=== PATIENT | female | born 1970 | race Caucasian/White ===

== ENCOUNTER 2023-05-30 14:15 | Emergency (ER) | payer BC ==
[2023-05-30] MEDS: Ondansetron 4 MG/2 ML SDV IVPUSH ONE (15:11)
[2023-05-30] MEDS: Ketorolac 15 MG/ML SDV IVPUSH ONE (15:11)
[2023-05-30] MEDS: methylPREDNISolone Sodium Succinate 125 MG/2 ML SDV IVPUSH ONE (15:11)
[2023-05-30] MEDS: HYDROmorphone 0.5 MG/0.5 ML Syringe IVPUSH ONE (15:33)
[2023-05-30] MEDS: Take Home: Orphenadrine 100 MG Tab.ER, 4 Tab Pack PO ONE (15:46)
[2023-05-30] MEDS: Take Home: oxyCODONE HCl 5 MG Tab, 5 Tab Pack PO ONE (15:46)
[2023-05-30] MEDS: Take Home: predniSONE 20 MG, 4 Tab Pack PO ONE (15:47)
[2023-05-30] MEDS: Sodium Chloride 0.9% 10 ML Syringe FLUSH PRN (15:51)
[2023-05-30] MEDS: Orphenadrine 100 MG Tab.ER PO ONE (15:51)
[2023-05-30] MEDS: Take Home: Ketorolac 10 MG Tab, 4 Tab Pack PO ONE (16:49)
== END 2023-05-30 16:25 | disposition home or self-care (01) ==
LOC: LL.ED 14:15
DX: M54.42 Lumbago with sciatica, left side (principal); Z88.0 Allergy status to penicillin
CPT/HCPCS: 96374; 96375; 99283-25; A9270-GY; J1170; J1885; J2405; J2930; J3490